=== PATIENT | male | born 1945 | race Caucasian/White ===

== ENCOUNTER 2019-07-08 20:59 | Inpatient (IN) ==
[2019-07-08 21:26] LABS: Basophils # 0.1 K/mcL (0.0-0.2); Eosinophils # 1.9 K/mcL (0.0-0.6); Eosinophils % 13.1 %; Hematocrit 49.1 % (37.5-50.1); Hemoglobin 15.4 g/dL (12.9-16.9); Immature Granulocytes % 0.3 % (0-4); Lymphocytes # 1.8 K/mcL (0.6-4.6); Lymphocytes % 12.4 %; Mean Corpuscular HGB Conc 31.4 g/dL (31.6-35.5); Mean Corpuscular Hemoglobin 30.3 pg (28.0-33.3); Mean Corpuscular Volume 96.7 fL (83.0-100.0); Mean Platelet Volume 9.2 fL (9.4-12.4); Monocytes % 7.1 %; Neutrophils # 9.6 K/mcL (1.6-8.9); Platelet Count 265 K/mcL (140-400); Red Blood Count 5.08 M/mcL (4.19-5.50); Red Cell Distribution Width 13.7 % (11.5-14.5); Segmented Neutrophils % 66.1 %; White Blood Count 14.5 K/mcL (4.3-11.1)
[2019-07-08 21:31] LABS: Prothrombin Time 11.4 Seconds (9.4-12.1)
[2019-07-08 21:34] LABS: Activated Partial Thrombo Time 31.9 Seconds (26.0-36.0)
[2019-07-08] MEDS ORDERED: methylPREDNISolone 125 MG/2 ML VIAL IVP ONE (21:42)
[2019-07-08 21:49] LABS: Alanine Aminotransferase 18 Units/L (7-52); Albumin 4.3 g/dL (3.5-5.7); Albumin/Globulin Ratio 1.6 (1.1-2.2); Alkaline Phosphatase 103 Units/L (34-104); Aspartate Amino Transferase 21 Units/L (13-39); BUN/Creatinine Ratio 13 (6-26); Bilirubin,Total 0.5 mg/dL (0.3-1.0); Blood Urea Nitrogen 13 mg/dL (8-23); Calcium 9.1 mg/dL (8.6-10.3); Carbon Dioxide 28 mEq/L (23-29); Chloride 101 mEq/L (98-107); Globulin 2.7 g/dL (2.4-3.5); Glucose 147 mg/dL (70-105); Osmolality,Calculated 283 (280-300); Sodium 135 mEq/L (136-145); eGFR For African Americans > 60 (> 60); eGFR For Non-African Americans > 60 (> 60)
[2019-07-08] MEDS ORDERED: cefTRIAXone 1,000 MG in Water for inj. (sterile) 10 ML IVP ONE (21:49)
[2019-07-08] MEDS ORDERED: Azithromycin 500 MG in 0.9 % Sodium Chloride 250 ML IVPB ONE (21:49)
[2019-07-08] MEDS ORDERED: 0.9 % Sodium Chloride 1,000 ML IVC ONE (21:49)
[2019-07-08 21:50] LABS: Troponin I < 0.03 ng/mL (< 0.04)
[2019-07-08] MEDS ORDERED: Aspirin 81 MG TAB.CHEW PO ONE (21:50)
[2019-07-08] MEDS ORDERED: Ipratropium 1 PUFF INHALER IH ONE (21:55)
[2019-07-08] MEDS ORDERED: Isovue-370 500 ML BOTTLE IVP ONE (22:26)
[2019-07-09] MEDS ORDERED: Naloxone 0.4 MG/ML INJ IVP PRN (02:00)
[2019-07-09] MEDS: Ipratropium/Albuterol Neb 3 ML IH SCH ×4 (03:24→21:24)
[2019-07-09 04:21] LABS: Basophils % 0.2 %; Eosinophils % 0.4 %; Hematocrit 45.8 % (37.5-50.1); Hemoglobin 14.7 g/dL (12.9-16.9); Immature Granulocytes % 0.4 % (0-4); Lymphocytes # 0.3 K/mcL (0.6-4.6); Lymphocytes % 3.6 %; Mean Corpuscular HGB Conc 32.1 g/dL (31.6-35.5); Mean Corpuscular Hemoglobin 30.4 pg (28.0-33.3); Mean Corpuscular Volume 94.6 fL (83.0-100.0); Mean Platelet Volume 9.6 fL (9.4-12.4); Monocytes # 0.1 K/mcL (0.0-1.3); Monocytes % 0.5 %; Neutrophils # 8.9 K/mcL (1.6-8.9); Platelet Count 255 K/mcL (140-400); Red Blood Count 4.84 M/mcL (4.19-5.50); Red Cell Distribution Width 13.6 % (11.5-14.5); Segmented Neutrophils % 94.9 %; White Blood Count 9.4 K/mcL (4.3-11.1)
[2019-07-09 04:37] LABS: BUN/Creatinine Ratio 14 (6-26); Blood Urea Nitrogen 12 mg/dL (8-23); Calcium 8.6 mg/dL (8.6-10.3); Carbon Dioxide 27 mEq/L (23-29); Chloride 102 mEq/L (98-107); Glucose 145 mg/dL (70-105); Osmolality,Calculated 284 (280-300); Potassium 4.7 mEq/L (3.5-5.1); Sodium 136 mEq/L (136-145); eGFR For African Americans > 60 (> 60); eGFR For Non-African Americans > 60 (> 60)
[2019-07-09] MEDS: *HR* Heparin 5,000 UNIT/ML VIAL SQ SCH ×2 (05:07→17:54)
[2019-07-09] MEDS ORDERED: *HR* Labetalol 20 MG/4 ML SYRINGE IVP ONE (05:15)
[2019-07-09] MEDS: predniSONE 20 MG TABLET PO SCH (08:23)
[2019-07-09 08:26] LABS: Estimated Average Glucose 120 mg/dl
[2019-07-09 08:40] LABS: Magnesium 1.8 mg/dL (1.6-2.6)
[2019-07-09] MEDS: Budesonide/Formoterol 160/4.5 1 PUFF INH IH SCH ×2 (11:23→21:24)
[2019-07-09] MEDS: Doxycycline 100 MG in 0.9 % Sodium Chloride Mini Bag 100 ML IVPB SCH (17:54)
[2019-07-09] MEDS ORDERED: Azithromycin 500 MG in 0.9 % Sodium Chloride 250 ML IVPB SCH (22:00)
[2019-07-10] MEDS: Ipratropium/Albuterol Neb 3 ML IH SCH ×4 (04:07→23:04)
[2019-07-10] MEDS: *HR* Heparin 5,000 UNIT/ML VIAL SQ SCH ×2 (05:28→17:44)
[2019-07-10] MEDS: Doxycycline 100 MG in 0.9 % Sodium Chloride Mini Bag 100 ML IVPB SCH (05:28)
[2019-07-10] MEDS: predniSONE 20 MG TABLET PO SCH (08:28)
[2019-07-10] MEDS: amLODIPine 5 MG TABLET PO SCH (08:28)
[2019-07-10 09:22] LABS: Hematocrit 45.4 % (37.5-50.1); Hemoglobin 14.3 g/dL (12.9-16.9); Mean Corpuscular HGB Conc 31.5 g/dL (31.6-35.5); Mean Corpuscular Hemoglobin 30.4 pg (28.0-33.3); Mean Corpuscular Volume 96.4 fL (83.0-100.0); Platelet Count 263 K/mcL (140-400); Red Blood Count 4.71 M/mcL (4.19-5.50); Red Cell Distribution Width 13.8 % (11.5-14.5); White Blood Count 11.9 K/mcL (4.3-11.1)
[2019-07-10 09:43] LABS: BUN/Creatinine Ratio 22 (6-26); Blood Urea Nitrogen 21 mg/dL (8-23); Calcium 8.8 mg/dL (8.6-10.3); Carbon Dioxide 29 mEq/L (23-29); Chloride 102 mEq/L (98-107); Glucose 123 mg/dL (70-105); Osmolality,Calculated 288 (280-300); Potassium 4.2 mEq/L (3.5-5.1); Sodium 137 mEq/L (136-145); eGFR For African Americans > 60 (> 60); eGFR For Non-African Americans > 60 (> 60)
[2019-07-10] MEDS: Budesonide/Formoterol 160/4.5 1 PUFF INH IH SCH ×2 (10:14→23:04)
[2019-07-10] MEDS: Doxycycline 100 MG CAPSULE PO SCH (17:43)
[2019-07-11] MEDS: Ipratropium/Albuterol Neb 3 ML IH SCH ×4 (04:22→22:55)
[2019-07-11] MEDS: *HR* Heparin 5,000 UNIT/ML VIAL SQ SCH ×2 (05:58→17:04)
[2019-07-11] MEDS: Doxycycline 100 MG CAPSULE PO SCH ×2 (05:58→17:04)
[2019-07-11 06:18] LABS: Hemoglobin 13.7 g/dL (12.9-16.9); Mean Corpuscular HGB Conc 33.4 g/dL (31.6-35.5); Mean Corpuscular Hemoglobin 31.5 pg (28.0-33.3); Mean Corpuscular Volume 94.3 fL (83.0-100.0); Mean Platelet Volume 9.8 fL (9.4-12.4); Platelet Count 240 K/mcL (140-400); Red Blood Count 4.35 M/mcL (4.19-5.50); Red Cell Distribution Width 13.8 % (11.5-14.5); White Blood Count 10.6 K/mcL (4.3-11.1)
[2019-07-11 06:45] LABS: BUN/Creatinine Ratio 26 (6-26); Blood Urea Nitrogen 23 mg/dL (8-23); Calcium 8.7 mg/dL (8.6-10.3); Carbon Dioxide 28 mEq/L (23-29); Chloride 102 mEq/L (98-107); Glucose 99 mg/dL (70-105); Osmolality,Calculated 288 (280-300); Potassium 4.1 mEq/L (3.5-5.1); Sodium 137 mEq/L (136-145); eGFR For African Americans > 60 (> 60); eGFR For Non-African Americans > 60 (> 60)
[2019-07-11] MEDS: amLODIPine 5 MG TABLET PO SCH (08:13)
[2019-07-11] MEDS: predniSONE 20 MG TABLET PO SCH (08:13)
[2019-07-11] MEDS: Budesonide/Formoterol 160/4.5 1 PUFF INH IH SCH ×2 (08:32→22:55)
[2019-07-12] MEDS: Ipratropium/Albuterol Neb 3 ML IH SCH ×3 (04:40→15:50)
[2019-07-12] MEDS: *HR* Heparin 5,000 UNIT/ML VIAL SQ SCH (05:28)
[2019-07-12] MEDS: Doxycycline 100 MG CAPSULE PO SCH (05:28)
[2019-07-12] MEDS: predniSONE 20 MG TABLET PO SCH (08:07)
[2019-07-12] MEDS: amLODIPine 5 MG TABLET PO SCH (08:07)
[2019-07-12] MEDS: Budesonide/Formoterol 160/4.5 1 PUFF INH IH SCH (11:17)
[2019-07-12 15:38] VITALS: BP 138/73
== END 2019-07-12 16:10 | disposition home or self-care (01) | DRG 189 ==
LOC: 3NENU 20:59 → EMEROOARM 20:59 → SUATTDRO 07-09 01:42 → 3NENU 07-09 02:32 → 3BNU 07-09 13:26
PROVIDERS: ADMIT Family Medicine; ATTEND Internal Medicine

== ENCOUNTER 2019-08-21 21:57 | Inpatient (IN) ==
[~2019-08-21 21:57] MED LIST: *HR* Etomidate 20 MG/10 ML AMPUL IVP ONE; *HR* Rocuronium Bromide 50 MG/5 ML VIAL IVP ONE
[2019-08-21] MEDS ORDERED: methylPREDNISolone 125 MG/2 ML VIAL IVP ONE (22:10)
[2019-08-21] MEDS ORDERED: 0.9 % Sodium Chloride 1,000 ML IVC ONE (22:10)
[2019-08-21] MEDS ORDERED: Ipratropium/Albuterol Neb 3 ML IH ONE (22:10)
[2019-08-21] MEDS ORDERED: Ipratropium/Albuterol Neb 3 ML ONE (22:12)
[2019-08-21 22:24] LABS: Hematocrit 47.3 % (37.5-50.1); Hemoglobin 14.5 g/dL (12.9-16.9); Mean Corpuscular HGB Conc 30.7 g/dL (31.6-35.5); Mean Corpuscular Hemoglobin 30.5 pg (28.0-33.3); Mean Corpuscular Volume 99.4 fL (83.0-100.0); Mean Platelet Volume 9.4 fL (9.4-12.4); Platelet Count 315 K/mcL (140-400); Red Blood Count 4.76 M/mcL (4.19-5.50); White Blood Count 17.1 K/mcL (4.3-11.1)
[2019-08-21 22:31] LABS: Prothrombin Time 11.4 Seconds (9.4-12.1)
[2019-08-21 22:34] LABS: Activated Partial Thrombo Time 31.3 Seconds (26.0-36.0)
[2019-08-21] MEDS: FentaNYL (PF) 1,000 MCG/100 ML IV.SOLN IVC SCH (22:37)
[2019-08-21 22:44] LABS: Alanine Aminotransferase 34 Units/L (7-52); Albumin 4.1 g/dL (3.5-5.7); Albumin/Globulin Ratio 1.6 (1.1-2.2); Alkaline Phosphatase 85 Units/L (34-104); Aspartate Amino Transferase 44 Units/L (13-39); BUN/Creatinine Ratio 10 (6-26); Bilirubin,Direct 0.1 mg/dL (0.0-0.2); Bilirubin,Indirect 0.4 mg/dL (0.0-1.0); Bilirubin,Total 0.5 mg/dL (0.3-1.0); Blood Urea Nitrogen 11 mg/dL (8-23); Calcium 8.6 mg/dL (8.6-10.3); Carbon Dioxide 20 mEq/L (23-29); Chloride 104 mEq/L (98-107); Creatine Kinase 287 Units/L (30-223); Ethanol 11 mg/dL (Less than 10); Globulin 2.5 g/dL (2.4-3.5); Glucose 212 mg/dL (70-105); Osmolality,Calculated 288 (280-300); Potassium 4.7 mEq/L (3.5-5.1); Sodium 136 mEq/L (136-145); Total Protein 6.6 g/dL (6.4-8.9); Troponin I < 0.03 ng/mL (< 0.04); eGFR For African Americans > 60 (> 60); eGFR For Non-African Americans > 60 (> 60)
[2019-08-21 22:47] LABS: ABG Base Excess -4 mEq/L (-2 to 3); ABG HCO3 26 mEq/L (21-27); ABG Oxygen Saturation 100 % (95-98); ABG PCO2 68 mmHg (35-45); ABG PH 7.19 pH Units (7.32-7.45); ABG PO2 431 mmHg (85-104); ABG TCO2 28 mEq/L (20-26); Blood Gas Modality ASSIST CONTROL; Blood Gas VT 500 cc
[2019-08-21 22:50] LABS: Basophils # 0.2 K/mcL (0.0-0.2); Eosinophils # 1.7 K/mcL (0.0-0.6); Lymphocytes # 6.3 K/mcL (0.6-4.6); Monocytes # 0.7 K/mcL (0.0-1.3); Neutrophils # 7.9 K/mcL (1.6-8.9); Platelet Estimate Normal (Normal)
[2019-08-21 22:51] LABS: Large Platelets Present (Not Present)
[2019-08-21] MEDS ORDERED: Vancomycin 1,500 MG/265 ML IV.SOLN IVPB STA (22:55)
[2019-08-21] MEDS ORDERED: Piperacillin/Tazobactam 3.375 GM in 0.9 % Sodium Chloride Mini Bag 100 ML IVPB ONE (22:55)
[2019-08-21 22:57] LABS: Thyroid Stimulating Hormone 4.987 mcIU/mL (0.340-5.600)
[2019-08-22 01:06] LABS: ABG Base Excess -2 mEq/L (-2 to 3); ABG HCO3 29 mEq/L (21-27); ABG Oxygen Saturation 98 % (95-98); ABG PCO2 79 mmHg (35-45); ABG PH 7.17 pH Units (7.32-7.45); ABG PO2 145 mmHg (85-104); ABG TCO2 31 mEq/L (20-26); Blood Gas Modality AF; Blood Gas VT 500 cc
[2019-08-22] MEDS ORDERED: Artificial Tears SOLN 15 ML BOTTLE BOTH EYES PRN (01:06)
[2019-08-22] MEDS ORDERED: Naloxone 0.4 MG/ML INJ IVP PRN (01:06)
[2019-08-22] MEDS ORDERED: 0.9 % Sodium Chloride 1,000 ML IV ONE (01:36)
[2019-08-22] MEDS: Dexmedetomidine HCl 400 MCG/100 ML MLS IVC SCH ×2 (01:57→23:02)
[2019-08-22] MEDS: Chlorhexidine Rinse 15 ML MOUTHWASH MM SCH ×3 (02:04→20:18)
[2019-08-22] MEDS ORDERED: Albuterol 2.5 MG/3 ML NEBULIZER IH PRN (02:08)
[2019-08-22 02:48] LABS: Basophils # 0.1 K/mcL (0.0-0.2); Basophils % 0.2 %; Eosinophils # 0.1 K/mcL (0.0-0.6); Eosinophils % 0.6 %; Hematocrit 43.8 % (37.5-50.1); Hemoglobin 13.6 g/dL (12.9-16.9); Immature Granulocytes % 1.1 % (0-4); Lymphocytes # 0.8 K/mcL (0.6-4.6); Lymphocytes % 4.1 %; Mean Corpuscular HGB Conc 31.1 g/dL (31.6-35.5); Mean Corpuscular Hemoglobin 30.7 pg (28.0-33.3); Mean Corpuscular Volume 98.9 fL (83.0-100.0); Mean Platelet Volume 9.3 fL (9.4-12.4); Monocytes # 1.3 K/mcL (0.0-1.3); Monocytes % 6.5 %; Neutrophils # 17.6 K/mcL (1.6-8.9); Platelet Count 188 K/mcL (140-400); Red Blood Count 4.43 M/mcL (4.19-5.50); Red Cell Distribution Width 14.1 % (11.5-14.5); Segmented Neutrophils % 87.5 %; White Blood Count 20.2 K/mcL (4.3-11.1)
[2019-08-22 03:11] LABS: Alanine Aminotransferase 31 Units/L (7-52); Albumin 3.6 g/dL (3.5-5.7); Albumin/Globulin Ratio 1.6 (1.1-2.2); Alkaline Phosphatase 72 Units/L (34-104); Aspartate Amino Transferase 44 Units/L (13-39); BUN/Creatinine Ratio 12 (6-26); Bilirubin,Total 0.9 mg/dL (0.3-1.0); Blood Urea Nitrogen 12 mg/dL (8-23); Calcium 7.9 mg/dL (8.6-10.3); Carbon Dioxide 24 mEq/L (23-29); Chloride 107 mEq/L (98-107); Globulin 2.2 g/dL (2.4-3.5); Glucose 144 mg/dL (70-105); Magnesium 1.9 mg/dL (1.6-2.6); Osmolality,Calculated 286 (280-300); Phosphorous 3.7 mg/dL (2.7-4.5); Potassium 4.3 mEq/L (3.5-5.1); Sodium 137 mEq/L (136-145); Total Protein 5.8 g/dL (6.4-8.9); Troponin I 0.09 ng/mL (< 0.04); eGFR For African Americans > 60 (> 60); eGFR For Non-African Americans > 60 (> 60)
[2019-08-22] MEDS: Thiamine (B-1) 100 MG, Folic Acid 1 MG, MVI, adult with vitamin K 10 ML in 0.9 % Sodi... IVPB SCH ×2 (04:06→18:39)
[2019-08-22] MEDS: Artificial Tears SOLN 15 ML BOTTLE BOTH EYES SCH ×6 (04:09→23:57)
[2019-08-22 04:15] LABS: ABG Base Excess -2 mEq/L (-2 to 3); ABG HCO3 25 mEq/L (21-27); ABG Oxygen Saturation 98 % (95-98); ABG PCO2 50 mmHg (35-45); ABG PH 7.31 pH Units (7.32-7.45); ABG PO2 115 mmHg (85-104); ABG TCO2 27 mEq/L (20-26); Blood Gas Modality AF; Blood Gas VT 500 cc
[2019-08-22] MEDS ORDERED: Ipratropium/Albuterol Neb 3 ML IH SCH (05:00)
[2019-08-22] MEDS: *HR* Heparin 5,000 UNIT/ML VIAL SQ SCH ×2 (05:24→18:39)
[2019-08-22] MEDS: MethylPREDNISolone 40 MG/ML VIAL IVP SCH ×4 (05:24→23:46)
[2019-08-22] MEDS: Pantoprazole 40 MG VIAL IVP SCH (08:02)
[2019-08-22] MEDS: Piperacillin/Tazobactam 3.375 GM in 0.9 % Sodium Chloride Mini Bag 100 ML IVPB SCH ×3 (08:02→23:46)
[2019-08-22] MEDS: Pyridostigmine Br 60 MG TABLET GTUBE SCH ×2 (08:58→16:45)
[2019-08-22] MEDS: Budesonide/Formoterol 160/4.5 1 PUFF INH IH SCH ×2 (09:51→22:04)
[2019-08-22] MEDS: Ipratropium/Albuterol Neb 3 ML IH SCH ×3 (09:51→22:04)
[2019-08-22] MEDS ORDERED: *HR* LORazepam 2 MG/ML VIAL IVP PRN ×3 (10:13)
[2019-08-22] MEDS: Vancomycin 1,500 MG/265 ML IV.SOLN IVPB SCH ×2 (17:01→23:45)
[2019-08-22 22:03] LABS: Bacteria,Urine Few per hpf (None-Few); Bilirubin,Urine Negative (Negative); Blood,Urine Moderate (Negative); Budding Yeast,Urine Few per hpf (None Seen); Clarity,Urine Turbid (Clear); Color,Urine Yellow (Yellow); Glucose,Urine (UA) Normal (Normal); Ketones,Urine Trace mg/dL (Negative); Leukocyte Esterase,Urine Trace (Negative); Mucus,Urine Few per lpf (None-Few); Nitrite,Urine Negative (Negative); Protein,Urine 100 mg/dL (Neg-Trace); RBC,Urine TNTC per hpf (0-3); Specific Gravity,Urine > 1.030 (1.010-1.025); Squamous Epithelial Cell,Urine Few per hpf (None-Few); Urobilinogen,Urine Normal (Normal); WBC,Urine 15-30 per hpf (0-3)
[2019-08-22 22:10] LABS: Amphetamine Screen,Urine Negative ng/mL (Cutoff=1000); Barbiturate Screen,Urine Negative ng/mL (Cutoff=200); Benzodiazepines Screen,Urine Negative ng/mL (Cutoff=200); Cannabinoid Screen,Urine Negative ng/mL (Cutoff = 50); Cocaine Screen,Urine Negative ng/mL (Cutoff= 300); Opiate Screen,Urine Negative ng/mL (Cutoff=300); Phencyclidine Screen,Urine Negative ng/mL (Cutoff=25)
[2019-08-22] MEDS: FentaNYL (PF) 1,000 MCG/100 ML IV.SOLN IVC SCH (23:02)
[2019-08-22] MEDS: Pyridostigmine Br 60 MG TABLET PO SCH (23:46)
[2019-08-23] MEDS: Artificial Tears SOLN 15 ML BOTTLE BOTH EYES SCH ×2 (03:01→08:32)
[2019-08-23] MEDS: Ipratropium/Albuterol Neb 3 ML IH SCH ×4 (03:35→21:37)
[2019-08-23 05:55] LABS: Basophils % 0.1 %; Hematocrit 36.1 % (37.5-50.1); Immature Granulocytes % 0.6 % (0-4); Lymphocytes # 0.6 K/mcL (0.6-4.6); Lymphocytes % 4.2 %; Mean Corpuscular HGB Conc 32.1 g/dL (31.6-35.5); Mean Corpuscular Hemoglobin 31.4 pg (28.0-33.3); Mean Corpuscular Volume 97.8 fL (83.0-100.0); Mean Platelet Volume 9.5 fL (9.4-12.4); Monocytes # 0.8 K/mcL (0.0-1.3); Monocytes % 5.4 %; Neutrophils # 12.5 K/mcL (1.6-8.9); Platelet Count 174 K/mcL (140-400); Red Blood Count 3.69 M/mcL (4.19-5.50); Red Cell Distribution Width 14.5 % (11.5-14.5); Segmented Neutrophils % 89.7 %
[2019-08-23 05:57] LABS: Hemoglobin 11.6 g/dL (12.9-16.9)
[2019-08-23] MEDS: *HR* Heparin 5,000 UNIT/ML VIAL SQ SCH ×2 (06:04→18:01)
[2019-08-23] MEDS: MethylPREDNISolone 40 MG/ML VIAL IVP SCH ×2 (06:04→11:54)
[2019-08-23 06:13] LABS: BUN/Creatinine Ratio 22 (6-26); Blood Urea Nitrogen 18 mg/dL (8-23); Calcium 7.3 mg/dL (8.6-10.3); Carbon Dioxide 23 mEq/L (23-29); Chloride 111 mEq/L (98-107); Glucose 146 mg/dL (70-105); Osmolality,Calculated 293 (280-300); Potassium 3.9 mEq/L (3.5-5.1); Sodium 139 mEq/L (136-145); eGFR For African Americans > 60 (> 60); eGFR For Non-African Americans > 60 (> 60)
[2019-08-23] MEDS: Pyridostigmine Br 60 MG TABLET PO SCH ×3 (08:30→23:25)
[2019-08-23] MEDS: Piperacillin/Tazobactam 3.375 GM in 0.9 % Sodium Chloride Mini Bag 100 ML IVPB SCH ×2 (08:31→15:48)
[2019-08-23] MEDS: Chlorhexidine Rinse 15 ML MOUTHWASH MM SCH (08:31)
[2019-08-23] MEDS: Pantoprazole 40 MG VIAL IVP SCH ×2 (08:31→11:54)
[2019-08-23] MEDS ORDERED: *HR* LORazepam 2 MG/ML VIAL IVP PRN ×3 (08:51)
[2019-08-23] MEDS ORDERED: Naloxone 0.4 MG/ML INJ IVP PRN (08:51)
[2019-08-23] MEDS ORDERED: Albuterol 2.5 MG/3 ML NEBULIZER IH PRN (08:51)
[2019-08-23] MEDS: Budesonide/Formoterol 160/4.5 1 PUFF INH IH SCH ×2 (10:49→21:37)
[2019-08-23] MEDS: Aspirin Enteric Coated 81 MG Tablet PO SCH (11:55)
[2019-08-23] MEDS: Vancomycin 1,500 MG/265 ML IV.SOLN IVPB SCH (13:26)
[2019-08-23] MEDS ORDERED: Thiamine (B-1) 100 MG, Folic Acid 1 MG, MVI, adult with vitamin K 10 ML in 0.9 % Sodi... IVPB SCH (18:00)
[2019-08-23] MEDS ORDERED: Acetaminophen 325 MG TABLET PO ONE (23:34)
[2019-08-24] MEDS: Vancomycin 1,500 MG/265 ML IV.SOLN IVPB SCH ×2 (00:01→11:46)
[2019-08-24] MEDS: Piperacillin/Tazobactam 3.375 GM in 0.9 % Sodium Chloride Mini Bag 100 ML IVPB SCH ×3 (00:02→15:29)
[2019-08-24] MEDS: Ipratropium/Albuterol Neb 3 ML IH SCH ×4 (04:16→21:40)
[2019-08-24 05:19] LABS: Basophils % 0.1 %; Eosinophils % 0.2 %; Hemoglobin 12.4 g/dL (12.9-16.9); Immature Granulocytes % 0.4 % (0-4); Lymphocytes # 2.3 K/mcL (0.6-4.6); Lymphocytes % 14.4 %; Mean Corpuscular HGB Conc 31.8 g/dL (31.6-35.5); Mean Corpuscular Hemoglobin 31.1 pg (28.0-33.3); Mean Corpuscular Volume 97.7 fL (83.0-100.0); Mean Platelet Volume 9.6 fL (9.4-12.4); Monocytes # 1.6 K/mcL (0.0-1.3); Monocytes % 10.4 %; Neutrophils # 11.7 K/mcL (1.6-8.9); Platelet Count 189 K/mcL (140-400); Red Blood Count 3.99 M/mcL (4.19-5.50); Red Cell Distribution Width 14.8 % (11.5-14.5); Segmented Neutrophils % 74.5 %; White Blood Count 15.7 K/mcL (4.3-11.1)
[2019-08-24] MEDS: *HR* Heparin 5,000 UNIT/ML VIAL SQ SCH ×2 (05:33→16:53)
[2019-08-24 05:38] LABS: BUN/Creatinine Ratio 23 (6-26); Blood Urea Nitrogen 22 mg/dL (8-23); Calcium 8.4 mg/dL (8.6-10.3); Carbon Dioxide 28 mEq/L (23-29); Chloride 107 mEq/L (98-107); Glucose 110 mg/dL (70-105); Osmolality,Calculated 288 (280-300); Potassium 4.3 mEq/L (3.5-5.1); Sodium 137 mEq/L (136-145); eGFR For African Americans > 60 (> 60); eGFR For Non-African Americans > 60 (> 60)
[2019-08-24] MEDS: Pantoprazole 40 MG VIAL IVP SCH (07:58)
[2019-08-24] MEDS: MethylPREDNISolone 40 MG/ML VIAL IVP SCH (07:58)
[2019-08-24] MEDS: Aspirin Enteric Coated 81 MG Tablet PO SCH (07:58)
[2019-08-24] MEDS: Metoprolol XL (24 HR) Succ 25 MG TAB.ER.24H PO SCH (07:58)
[2019-08-24] MEDS: Pyridostigmine Br 60 MG TABLET PO SCH ×3 (09:32→16:53)
[2019-08-24] MEDS: Budesonide/Formoterol 160/4.5 1 PUFF INH IH SCH ×2 (10:06→21:40)
[2019-08-24] MEDS ORDERED: Furosemide 20 MG TABLET PO ONE (18:42)
[2019-08-25] MEDS: Pyridostigmine Br 60 MG TABLET PO SCH ×4 (00:35→23:27)
[2019-08-25] MEDS: Ipratropium/Albuterol Neb 3 ML IH SCH ×4 (03:26→20:11)
[2019-08-25] MEDS: *HR* Heparin 5,000 UNIT/ML VIAL SQ SCH ×2 (05:07→17:48)
[2019-08-25 06:26] LABS: Basophils % 0.2 %; Eosinophils # 0.2 K/mcL (0.0-0.6); Hematocrit 39.7 % (37.5-50.1); Hemoglobin 13.1 g/dL (12.9-16.9); Immature Granulocytes % 0.6 % (0-4); Lymphocytes % 13.4 %; Mean Corpuscular Hemoglobin 31.3 pg (28.0-33.3); Mean Corpuscular Volume 94.7 fL (83.0-100.0); Mean Platelet Volume 9.4 fL (9.4-12.4); Monocytes # 1.8 K/mcL (0.0-1.3); Monocytes % 11.9 %; Neutrophils # 10.9 K/mcL (1.6-8.9); Platelet Count 179 K/mcL (140-400); Red Blood Count 4.19 M/mcL (4.19-5.50); Red Cell Distribution Width 14.6 % (11.5-14.5); Segmented Neutrophils % 72.9 %
[2019-08-25 06:46] LABS: BUN/Creatinine Ratio 20 (6-26); Blood Urea Nitrogen 18 mg/dL (8-23); Calcium 8.7 mg/dL (8.6-10.3); Carbon Dioxide 30 mEq/L (23-29); Chloride 101 mEq/L (98-107); Glucose 107 mg/dL (70-105); Osmolality,Calculated 288 (280-300); Potassium 3.8 mEq/L (3.5-5.1); Sodium 138 mEq/L (136-145); eGFR For African Americans > 60 (> 60); eGFR For Non-African Americans > 60 (> 60)
[2019-08-25] MEDS: Aspirin Enteric Coated 81 MG Tablet PO SCH (07:22)
[2019-08-25] MEDS: predniSONE 20 MG TABLET PO SCH (07:22)
[2019-08-25] MEDS: Pantoprazole 40 MG VIAL IVP SCH (07:22)
[2019-08-25] MEDS: Metoprolol XL (24 HR) Succ 25 MG TAB.ER.24H PO SCH (07:23)
[2019-08-25] MEDS: Budesonide/Formoterol 160/4.5 1 PUFF INH IH SCH ×2 (10:47→20:10)
[2019-08-26 03:34] LABS: Basophils % 0.2 %; Eosinophils # 0.3 K/mcL (0.0-0.6); Eosinophils % 2.3 %; Hematocrit 38.4 % (37.5-50.1); Hemoglobin 12.8 g/dL (12.9-16.9); Immature Granulocytes % 0.8 % (0-4); Lymphocytes # 2.3 K/mcL (0.6-4.6); Lymphocytes % 17.7 %; Mean Corpuscular HGB Conc 33.3 g/dL (31.6-35.5); Mean Corpuscular Hemoglobin 31.4 pg (28.0-33.3); Mean Corpuscular Volume 94.1 fL (83.0-100.0); Mean Platelet Volume 9.9 fL (9.4-12.4); Monocytes # 1.5 K/mcL (0.0-1.3); Monocytes % 11.8 %; Neutrophils # 8.6 K/mcL (1.6-8.9); Platelet Count 191 K/mcL (140-400); Red Blood Count 4.08 M/mcL (4.19-5.50); Red Cell Distribution Width 14.4 % (11.5-14.5); Segmented Neutrophils % 67.2 %; White Blood Count 12.8 K/mcL (4.3-11.1)
[2019-08-26 03:53] LABS: BUN/Creatinine Ratio 24 (6-26); Blood Urea Nitrogen 20 mg/dL (8-23); Calcium 8.4 mg/dL (8.6-10.3); Carbon Dioxide 29 mEq/L (23-29); Chloride 101 mEq/L (98-107); Glucose 102 mg/dL (70-105); Magnesium 1.9 mg/dL (1.6-2.6); Osmolality,Calculated 287 (280-300); Potassium 3.8 mEq/L (3.5-5.1); Sodium 137 mEq/L (136-145); eGFR For African Americans > 60 (> 60); eGFR For Non-African Americans > 60 (> 60)
[2019-08-26] MEDS: Ipratropium/Albuterol Neb 3 ML IH SCH ×4 (04:12→21:03)
[2019-08-26] MEDS: *HR* Heparin 5,000 UNIT/ML VIAL SQ SCH ×2 (05:00→16:57)
[2019-08-26] MEDS: Pyridostigmine Br 60 MG TABLET PO SCH ×3 (07:07→23:48)
[2019-08-26] MEDS: Folic Acid 1 MG TABLET PO SCH (07:07)
[2019-08-26] MEDS: Multivit/Ca/Min/Fe/FA 1 TAB TABLET PO SCH (07:07)
[2019-08-26] MEDS: Thiamine (B-1) 100 MG TABLET PO SCH (07:07)
[2019-08-26] MEDS: Aspirin Enteric Coated 81 MG Tablet PO SCH (07:07)
[2019-08-26] MEDS: predniSONE 20 MG TABLET PO SCH (07:07)
[2019-08-26] MEDS: Metoprolol XL (24 HR) Succ 25 MG TAB.ER.24H PO SCH (07:08)
[2019-08-26] MEDS: Budesonide/Formoterol 160/4.5 1 PUFF INH IH SCH ×2 (10:56→21:03)
[2019-08-27 01:20] LABS: Basophils % 0.2 %; Eosinophils # 0.4 K/mcL (0.0-0.6); Hematocrit 40.5 % (37.5-50.1); Hemoglobin 12.8 g/dL (12.9-16.9); Immature Granulocytes % 0.9 % (0-4); Lymphocytes # 2.1 K/mcL (0.6-4.6); Lymphocytes % 15.3 %; Mean Corpuscular HGB Conc 31.6 g/dL (31.6-35.5); Mean Corpuscular Hemoglobin 30.2 pg (28.0-33.3); Mean Corpuscular Volume 95.5 fL (83.0-100.0); Mean Platelet Volume 10.3 fL (9.4-12.4); Monocytes # 1.6 K/mcL (0.0-1.3); Monocytes % 11.5 %; Neutrophils # 9.5 K/mcL (1.6-8.9); Platelet Count 211 K/mcL (140-400); Red Blood Count 4.24 M/mcL (4.19-5.50); Red Cell Distribution Width 14.6 % (11.5-14.5); Segmented Neutrophils % 69.1 %; White Blood Count 13.7 K/mcL (4.3-11.1)
[2019-08-27 01:39] LABS: BUN/Creatinine Ratio 27 (6-26); Blood Urea Nitrogen 24 mg/dL (8-23); Calcium 8.5 mg/dL (8.6-10.3); Carbon Dioxide 30 mEq/L (23-29); Chloride 101 mEq/L (98-107); Glucose 103 mg/dL (70-105); Magnesium 1.8 mg/dL (1.6-2.6); Osmolality,Calculated 290 (280-300); Sodium 138 mEq/L (136-145); eGFR For African Americans > 60 (> 60); eGFR For Non-African Americans > 60 (> 60)
[2019-08-27] MEDS: Ipratropium/Albuterol Neb 3 ML IH SCH ×3 (04:33→15:56)
[2019-08-27] MEDS: *HR* Heparin 5,000 UNIT/ML VIAL SQ SCH (05:12)
[2019-08-27] MEDS: Budesonide/Formoterol 160/4.5 1 PUFF INH IH SCH (09:51)
[2019-08-27] MEDS: Multivit/Ca/Min/Fe/FA 1 TAB TABLET PO SCH (10:11)
[2019-08-27] MEDS: Pyridostigmine Br 60 MG TABLET PO SCH (10:11)
[2019-08-27] MEDS: Aspirin Enteric Coated 81 MG Tablet PO SCH (10:11)
[2019-08-27] MEDS: Folic Acid 1 MG TABLET PO SCH (10:12)
[2019-08-27] MEDS: Thiamine (B-1) 100 MG TABLET PO SCH (10:12)
[2019-08-27] MEDS: Metoprolol XL (24 HR) Succ 25 MG TAB.ER.24H PO SCH (10:12)
[2019-08-27] MEDS: predniSONE 20 MG TABLET PO SCH (10:12)
[2019-08-27 14:29] VITALS: BP 118/67
== END 2019-08-27 18:39 | disposition home or self-care (01) | DRG 208 ==
LOC: EMEROOARM 21:57 → MERGE 08-22 00:04 → ICNU 08-22 00:04 → SUATTDRO 08-22 00:04 → ICNU 08-22 00:40 → 3ANU 08-23 17:02
PROVIDERS: ADMIT Internal Medicine; ATTEND Pharmacist